=== PATIENT | female | born 1975 | race Caucasian/White ===

== ENCOUNTER 2020-10-28 21:21 | Inpatient (IN) | payer BC ==
[~2020-10-28] VITALS: Ht 167.6 cm; Wt 134.9 kg
[2020-10-28 21:35] VITALS: BP 140/97
[2020-10-28] MEDS ORDERED: PROAIR HFA8.5 GM INH (21:38)
[2020-10-28] MEDS ORDERED: WELLBUTRIN SR150 M1 PO (21:39)
[2020-10-28 22:25] LABS: URINE BILIRUBIN NEGATIVE (Negative); URINE BLOOD TRACE (Negative); URINE CLARITY CLEAR; URINE COLOR YELLOW; URINE GLUCOSE-RANDOM NEGATIVE (Negative); URINE KETONES TRACE (Negative); URINE LEUKOCYTES-REFLEX NEGATIVE (Negative); URINE NITRITE-REFLEX NEGATIVE (Negative); URINE PROTEIN NEGATIVE (Negative); URINE SPECIFIC GRAVITY >= 1.030 (1.005-1.030); URINE UROBILINOGEN 0.2 E.U./dl (0.2-1.0)
[2020-10-28 22:56] LABS: ABSOLUTE MONOCYTES 0.4 thou/uL (0.0-1.2); BASOPHILS 0.8 %; EOSINOPHILS 0.9 %; HEMATOCRIT 44.7 % (37.0-47.0); HEMOGLOBIN 15.1 gm/dL (12.0-15.0); LYMPHOCYTES 28.1 %; MCH 29.7 pg (26.0-34.0); MCHC 33.7 g/dL (28.0-37.0); MCV 88.1 fL (80.0-100.0); MONOCYTES 12.3 %; MPV 8.5 fl. (7.2-11.1); NUCLEATED RBCS 0 /100WBC; PLATELET COUNT* 155 thou/uL (150-400); POLYS 57.9 %; RBC 5.08 mil/uL (4.20-5.00); RDW-CV 14.2 % (10.5-14.5); WBC 3.5 thou/uL (4.0-11.0)
[2020-10-28 23:05] LABS: CALCIUM 8.5 mg/dL (8.5-10.1); CREATININE 0.9 mg/dL (0.6-1.3); POTASSIUM 3.2 mmol/L (3.5-5.1)
[2020-10-28 23:07] LABS: PROTIME 10.9 Seconds (9.20-11.50)
[2020-10-28 23:20] LABS: ALBUMIN 3.6 g/dL (3.4-5.0); MAGNESIUM 1.8 mg/dL (1.8-2.4); TOTAL BILIRUBIN 0.2 mg/dL (<0.1-1.0); TOTAL PROTEIN 7.3 g/dL (6.4-8.2)
[2020-10-29] VITALS (7 sets, daily range): BP systolic 110–132; BP diastolic 71–92
[2020-10-29] MEDS ORDERED: NEXIUM 40 MG CA40 M1 PO (04:21)
[2020-10-29] MEDS ORDERED: SINGULAIR 10 MG10 M1 PO (04:25)
[2020-10-29] MEDS ORDERED: BREO ELLIPTA 11 EACH INH (04:42)
--- NOTE | 2020-10-29 09:57 | EKG ---
[place] [address] ELECTROCARDIOGRAM REPORT Name: FOZIA ALVARADO Room: [place] [address] ADM IN [facility]#: [id number] Admission: 10/28/20 Attend Phys: Garland Prescott Discharge: Date of : 77 Date of Service: 10/28/202135 Report #: [id number] THIS REPORT FOR: //name// [facility] ED Test Date: 2020-10-28 Test Time: 21:36:50 Pat Name: FOZIA ALVARADO Department: Room: [facility] Gender: F [employer]ician: : 1975 Requested By: Nicole Diane Order Number: [id number] MD: Jaden Alejo Measurements Intervals [place] Rate: 115 P: 38 [place]: 119 QRS: 197 QRSD: 102 T: 0 QT: 318 QTc: 440 Interpretive Statements Sinus tachycardia Inferior infarct, old Probable anterior infarct, age indeterminate No previous ECG available for comparison Electronically Signed On 10-29-2020 9:57:32 CDT by Jaden Alejo [email or web address] <ELECTRONICALLY SIGNED> By: Jaden Aleoj MD, [facility] 10/29/20 0957 35 35 Jaden Alejo MD, [facility] /EPI
[2020-10-30 00:30] VITALS: BP 115/76
[2020-10-30 04:00] VITALS: BP 119/89
[2020-10-30 05:30] LABS: ABSOLUTE LYMPHOCYTES 1.3 thou/uL (0.8-5.3); ABSOLUTE MONOCYTES 0.3 thou/uL (0.0-1.2); ABSOLUTE NEUTROPHILS 3.1 thou/uL (1.6-8.1); BASOPHILS 0.3 %; EOSINOPHILS 0.1 %; HEMATOCRIT 40.8 % (37.0-47.0); HEMOGLOBIN 13.8 gm/dL (12.0-15.0); LYMPHOCYTES 27.4 %; MCH 29.5 pg (26.0-34.0); MCHC 33.8 g/dL (28.0-37.0); MCV 87.5 fL (80.0-100.0); MPV 8.7 fl. (7.2-11.1); NUCLEATED RBCS 0 /100WBC; PLATELET COUNT* 144 thou/uL (150-400); POLYS 65.2 %; RBC 4.66 mil/uL (4.20-5.00); RDW-CV 14.1 % (10.5-14.5); WBC 4.8 thou/uL (4.0-11.0)
[2020-10-30 05:49] LABS: ALBUMIN 3.1 g/dL (3.4-5.0); CALCIUM 7.8 mg/dL (8.5-10.1); CREATININE 0.8 mg/dL (0.6-1.3); POTASSIUM 3.4 mmol/L (3.5-5.1); TOTAL BILIRUBIN 0.3 mg/dL (<0.1-1.0); TOTAL PROTEIN 6.6 g/dL (6.4-8.2)
[2020-10-30 08:00] VITALS: BP 105/77
[2020-10-30 11:53] VITALS: BP 120/87
[2020-10-30 17:00] VITALS: BP 117/84
[2020-10-30 20:00] VITALS: BP 113/79
[2020-10-31 07:58] LABS: ABSOLUTE MONOCYTES 0.4 thou/uL (0.0-1.2); ABSOLUTE NEUTROPHILS 1.8 thou/uL (1.6-8.1); BASOPHILS 0.3 %; HEMATOCRIT 41.2 % (37.0-47.0); HEMOGLOBIN 13.8 gm/dL (12.0-15.0); LYMPHOCYTES 32.3 %; MCH 29.5 pg (26.0-34.0); MCHC 33.4 g/dL (28.0-37.0); MCV 88.3 fL (80.0-100.0); MONOCYTES 11.2 %; MPV 8.5 fl. (7.2-11.1); NUCLEATED RBCS 0 /100WBC; PLATELET COUNT* 159 thou/uL (150-400); POLYS 56.2 %; RBC 4.66 mil/uL (4.20-5.00); RDW-CV 14.3 % (10.5-14.5); WBC 3.2 thou/uL (4.0-11.0)
[2020-10-31 08:05] LABS: ALBUMIN 3.3 g/dL (3.4-5.0); CALCIUM 7.8 mg/dL (8.5-10.1); CREATININE 0.7 mg/dL (0.6-1.3); MAGNESIUM 2.4 mg/dL (1.8-2.4); PHOSPHORUS* 3.2 mg/dL (2.5-4.9); POTASSIUM 3.7 mmol/L (3.5-5.1); TOTAL BILIRUBIN 0.3 mg/dL (<0.1-1.0); TOTAL PROTEIN 6.9 g/dL (6.4-8.2)
[2020-10-31 08:30] VITALS: BP 130/82
[2020-10-31 12:00] VITALS: BP 110/76
[2020-10-31 16:00] VITALS: BP 112/82
[2020-10-31 23:44] VITALS: BP 110/69
[2020-11-01 05:48] LABS: ABSOLUTE LYMPHOCYTES 1.7 thou/uL (0.8-5.3); ABSOLUTE MONOCYTES 0.5 thou/uL (0.0-1.2); ABSOLUTE NEUTROPHILS 2.3 thou/uL (1.6-8.1); BASOPHILS 0.2 %; EOSINOPHILS 0.2 %; HEMATOCRIT 40.5 % (37.0-47.0); HEMOGLOBIN 13.8 gm/dL (12.0-15.0); MCH 30.2 pg (26.0-34.0); MCHC 34.1 g/dL (28.0-37.0); MCV 88.5 fL (80.0-100.0); MONOCYTES 11.1 %; MPV 8.2 fl. (7.2-11.1); NUCLEATED RBCS 0 /100WBC; PLATELET COUNT* 159 thou/uL (150-400); POLYS 50.5 %; RBC 4.58 mil/uL (4.20-5.00); RDW-CV 13.9 % (10.5-14.5); WBC 4.5 thou/uL (4.0-11.0)
[2020-11-01 05:56] LABS: CALCIUM 8.2 mg/dL (8.5-10.1); CREATININE 0.8 mg/dL (0.6-1.3); POTASSIUM 3.6 mmol/L (3.5-5.1)
[2020-11-01 08:10] VITALS: BP 93/66
--- NOTE | 2020-11-01 15:22 | CON ---
[address] [address] CONSULTATION Name: FOZIA ALVARADO Room: [place] [address] ADM IN [facility]#: [id number] Admission: 10/28/20 Attend Phys: Avery Stark Discharge: Date of : 77 Report #: [id number] THIS REPORT FOR: cc: Jaciel Peraza MD, Anthony MD Pervez,Yeyo GAN ~ DOC #: [id number] Yeyo Reinoso MD DATE OF CONSULTATION: 10/30/2020 REQUESTING PHYSICIAN: Consult has been requested by Dr. Nico Watts. INDICATION FOR CONSULTATION: COVID-19. HISTORY OF PRESENT ILLNESS: A 44-year-old female, past medical history includes a history of morbid obesity, body mass index is 48. She also does have poorly controlled bronchial asthma. The patient reports that she has had 4 different rounds of antibiotics as well as steroids on several occasions since May as her asthma has been poorly controlled. The patient had a previous reaction to flu vaccine and therefore she was waiting on the COVID vaccine and has not had the same. She says that she has been having increasing shortness of breath for the last several days. Again, she went to [facility] and tested positive for COVID due to worsening complaints of shortness of breath with cough with minimal sputum production or clear sputum. She eventually came to the Emergency Room. The patient is currently requiring 2 liters of nasal cannula oxygen. She does not have any other new complaints. Does not have fever or chills. The patient was lying prone at the time of my evaluation. The patient says that previously she has been walking around. Her initial chest x-ray was unremarkable from yesterday. There is another chest x-ray on today, which shows interval development of an infiltrate in the left lower lobe, but there is also atelectasis and there is mild increase in pulmonary vascular congestion. REVIEW OF SYSTEMS: The patient's review of systems for 12 points is negative except as above. PAST MEDICAL HISTORY: Morbid obesity, body mass index 48, bronchial asthma, gallbladder surgery, tonsillectomy, right ovary removal, tubal ligation, tonsillectomy, tubes in ears, right leg surgery, malignant hyperthermia. CURRENT MEDICATIONS: List in [facility] reviewed. Home medication list also in [facility] reviewed. ALLERGIES: PENICILLIN MENTIONED AN ALLERGY. SOCIAL HISTORY: No known history of smoking, ethanol abuse, [place] [address] CONSULTATION Name: FOZIA ALVARADO Room: [address]#: [id number] Admission: 10/28/20 Attend Phys: Avery Stark Discharge: Date of : 77 Report #: [id number] FAMILY HISTORY: There is no known pertinent family history. PHYSICAL EXAMINATION: GENERAL: She is alert, awake and oriented. VITAL SIGNS: Has had significant tachycardia earlier with heart rates up to 120, heart rate was around 100 at the time of my evaluation, she is saturating 95% on 2 liters nasal cannula, blood pressure 120/87, temperature is mildly elevated to 37.2 now. She had a fever up to 38.1 recorded this morning. HEENT: Head is normocephalic and atraumatic. NECK: Does not show raised JVP. LUNGS: Breath sounds are bilaterally equal. I do not hear any added sounds. HEART: Regular. There is no murmur. ABDOMEN: Soft. EXTREMITIES: Lower extremities show no edema, no calf tenderness. SKIN: Dry and intact. NEUROLOGIC: Moves all extremities bilaterally equally and spontaneously with no focal deficit identified. LABORATORY DATA: The patient has had 2 chest x-rays, which are as discussed above. The patient's lab work is in [facility] and this is also reviewed. A low potassium level is noted. COVID-19 antigen is positive. ASSESSMENT AND PLAN: 1. Acute respiratory insufficiency secondary to COVID-19. I would continue to recommend prone positioning as well as ambulation and out of bed to chair as tolerated. We will continue to titrate oxygen and as it appears highly likely that the patient has underlying obstructive sleep apnea, recommend that she should wear BiPAP while asleep. 2. COVID-19. I agree with dexamethasone. I will go ahead and give her 4 mg of dexamethasone now. She received 4 mg this morning already. We will subsequently start with 6 mg beginning tomorrow morning and we will follow response. She is also remdesivir and I agree with the same and will continue. We will follow LFTs. 3. Pulmonary infiltrates, primarily these appear to be secondary to COVID-19. However, I feel that it is reasonable to continue with doxycycline, which was ordered by the primary service. We will switch this over to p.o. The patient is 44 years old; therefore, I asked her about possibility of . She says that she has had tubal ligation. We will give her Lactinex for Clostridium difficile prophylaxis. 4. Atelectasis. Discussion as above. Also, we will give her incentive spirometry. 5. Mild increase in pulmonary vascular congestion/mild fluid overload. I would like to give her Lasix. I only ordered 20 mg with 50 of Aldactone today. [address] [place] [place] [address] CONSULTATION Name: FOZIA ALVARADO Room: [address] IN [facility]#: [id number] Admission: 10/28/20 Attend Phys: Avery Stark Discharge: Date of : 77 Report #: [id number] Because the patient's potassium is low and magnesium is borderline, I ordered magnesium and potassium replacement. We will assess as to whether she needs more Lasix tomorrow. 6. Poorly controlled bronchial asthma. She is also on nebulized bronchodilators. We will continue to watch and titrate steroid as needed, also is on Singulair. 7. Deep venous thrombosis prophylaxis. Her D-dimer is normal. I would give her intermediate dose Lovenox at 60 mg b.i.d. for prophylaxis. 8. Long-term proton pump inhibitor use/possible gastroesophageal reflux disease, on Protonix. We will continue. 9. Clostridium difficile prophylaxis. We will give her Lactinex. Thanks for this consultation. Yeyo Reinoso MD /MAY <ELECTRONICALLY SIGNED> By: Yeyo Reinoso MD 11/01/20 1522 1427 [id number] Reinoso MD /nt
[2020-11-01 15:42] VITALS: BP 100/66
[2020-11-01 20:00] VITALS: BP 111/69
[2020-11-02 04:00] VITALS: BP 120/74
[2020-11-02 07:52] VITALS: BP 98/68
[2020-11-02 09:34] LABS: CALCIUM 8.5 mg/dL (8.5-10.1); CREATININE 0.7 mg/dL (0.6-1.3); POTASSIUM 3.2 mmol/L (3.5-5.1)
[2020-11-02 12:00] VITALS: BP 102/68
[2020-11-02] MEDS ORDERED: TESSALON PERLE100 MG PO (13:34)
[2020-11-02 14:05] VITALS: BP 102/68
== END 2020-11-02 14:52 | disposition home or self-care (01) | DRG 177 ==
LOC: EDSEX 21:21 → M.ERS 21:21 → M.2W 23:30 → M.TBA-ER 23:30 → M.2W 10-29 00:47
PROVIDERS: Emergency Medicine; Internal Medicine; Internal Medicine Critical Care Medicine; ADMIT Internal Medicine; ATTEND Internal Medicine
PROC: XW033E5 Introduction of Remdesivir Anti-infective into Peripheral Vein, Percutaneous Approach, New Technology Group 5 (ICD-10-PCS; principal; 2020-10-29)
PROC: 5A09357 Assistance with Respiratory Ventilation, Less than 24 Consecutive Hours, Continuous Positive Airway Pressure (ICD-10-PCS; 2020-10-31)
PROC: 5A09357 Assistance with Respiratory Ventilation, Less than 24 Consecutive Hours, Continuous Positive Airway Pressure (ICD-10-PCS; 2020-11-01)
DX: U07.1 COVID-19 (principal); J96.01 Acute respiratory failure with hypoxia; J12.82 Pneumonia due to coronavirus disease 2019; Z68.42 Body mass index [BMI] 45.0-49.9, adult; J98.11 Atelectasis; J45.901 Unspecified asthma with (acute) exacerbation; E66.2 Morbid (severe) obesity with alveolar hypoventilation; K21.9 Gastro-esophageal reflux disease without esophagitis; Z90.49 Acquired absence of other specified parts of digestive tract; Z90.721 Acquired absence of ovaries, unilateral; Z88.0 Allergy status to penicillin; Z79.899 Other long term (current) drug therapy